=== PATIENT | male | born 1940 | race Two or more races ===

== ENCOUNTER 2018-12-30 12:32 | Outpatient (CLI) | payer OTHER | END 2018-12-30 15:10 | disposition home or self-care (01) | LOC: MAMO-SONO 12:32 | DX: M79.651 Pain in right thigh (principal) ==

== ENCOUNTER → 2019-05-07 | Outpatient (CLI) | payer OTHER | END | disposition home or self-care (01) | LOC: TOM 14:15 | DX: G43.C0 Periodic headache syndromes in child or adult, not intractable (principal); I63.30 Cerebral infarction due to thrombosis of unspecified cerebral artery ==

== ENCOUNTER 2021-10-18 08:10 | Outpatient (CLI) | payer OTHER | END 2021-10-18 08:11 | disposition home or self-care (01) | LOC: SONOGRAMA 08:10 | PROVIDERS: ATTEND Internal Medicine Cardiovascular Disease | DX: R10.11 Right upper quadrant pain (principal); K76.0 Fatty (change of) liver, not elsewhere classified; I71.4 Abdominal aortic aneurysm, without rupture ==

== ENCOUNTER 2022-03-06 08:04 | Outpatient (CLI) | payer OTHER | END 2022-03-06 08:11 | disposition home or self-care (01) | LOC: TOM 08:04 | PROVIDERS: ATTEND Internal Medicine Gastroenterology | DX: K56.600 Partial intestinal obstruction, unspecified as to cause (principal) ==

== ENCOUNTER 2023-03-09 11:57 | Emergency (ER) | payer OTHER ==
[~2023-03-09] VITALS: Ht 182.9 cm; Wt 81.6 kg
[2023-03-09] MEDS ORDERED: CHILDREN'S ASPI81 MG PO (12:27)
[2023-03-09] MEDS ORDERED: ELIQUIS5 M1 PO (12:28)
[2023-03-09] MEDS ORDERED: HYDROCHLOROTHIA50 MG PO (12:28)
[2023-03-09] MEDS ORDERED: AVAPRO75 MG PO (12:28)
[2023-03-09] MEDS ORDERED: CRESTOR5 MG PO (12:28)
[2023-03-09 13:28] LABS: HEMOGLOBIN 13.8 g/dL (13-16.00); MEAN CELL VOLUME 81.3 fL (80.0-100.00); MEAN CORPUSCULAR HEMOGLOBIN 26.1 pg (27.00-32.0); MEAN CORPUSCULAR HGB CONC 32.1 g/dl (32.0-36.0); PLATELET COUNT 207 K/uL (150-450); RED BLOOD COUNT 5.29 M/uL (4.00-6.00); RED CELL DISTRIBUTION WIDTH 17.7 % (11.5-14.5)
[2023-03-09 13:53] LABS: CALCIUM 10.2 mg/dL (8.5-10.1); CREATININE SERUM 1.41 mg/dL (0.70-1.30); GFR 48.36; POTASSIUM 3.28 mEq/L (3.5-5.1)
== END 2023-03-09 15:06 | disposition home or self-care (01) ==
LOC: ER 11:57
PROVIDERS: General Practice
DX: I87.2 Venous insufficiency (chronic) (peripheral) (principal); I10 Essential (primary) hypertension; E78.00 Pure hypercholesterolemia, unspecified; Z88.0 Allergy status to penicillin; Z88.8 Allergy status to other drugs, medicaments and biological substances

== ENCOUNTER 2023-03-10 09:19 | Outpatient (CLI) | payer OTHER ==
[~2023-03-10 09:19] MED LIST: AVAPRO75 MG PO; CHILDREN'S ASPI81 MG PO; CRESTOR5 MG PO; ELIQUIS5 M1 PO; HYDROCHLOROTHIA50 MG PO
== END 2023-03-10 09:25 | disposition home or self-care (01) ==
LOC: RAD 09:19
PROVIDERS: ATTEND Family Medicine
DX: I10 Essential (primary) hypertension (principal); R60.9 Edema, unspecified; Z88.0 Allergy status to penicillin; Z88.1 Allergy status to other antibiotic agents; Z88.6 Allergy status to analgesic agent

== ENCOUNTER 2023-10-28 07:11 | Outpatient (CLI) | payer OTHER | END 2023-10-28 07:12 | disposition home or self-care (01) | LOC: NUCLEAR 07:11 | PROVIDERS: ATTEND Internal Medicine Cardiovascular Disease | DX: I20.89 Other forms of angina pectoris (principal) | CPT/HCPCS: 78452; 93017; A9500; J0153 ==

== ENCOUNTER 2024-06-16 08:43 | Outpatient (CLI) | payer OTHER | END 2024-06-16 08:53 | disposition home or self-care (01) | LOC: RAD 08:43 | PROVIDERS: ATTEND Family Medicine | DX: K56.41 Fecal impaction (principal) ==